=== PATIENT | female | born 1995 ===

== ENCOUNTER 2020-12-13 13:54 | Outpatient (REF) | payer OTHER, SELFPAY | END 2020-12-13 13:55 | disposition home or self-care (01) | LOC: HO.LAB 13:54 | PROVIDERS: Visit Provider Internal Medicine | DX: Z20.822 Contact with and (suspected) exposure to COVID-19 (principal) | CPT/HCPCS: 36415; C9803; U0003 ==

== ENCOUNTER 2021-07-20 12:36 | Outpatient (REF) | payer OTHER, SELFPAY | END 2021-07-20 12:37 | disposition home or self-care (01) | LOC: HO.LAB 12:36 | PROVIDERS: Visit Provider Internal Medicine | DX: Z20.822 Contact with and (suspected) exposure to COVID-19 (principal) | CPT/HCPCS: C9803; U0003; U0005 ==

== ENCOUNTER 2024-12-17 10:00 | Emergency (ER) | payer OTHER, SELFPAY ==
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
[2024-12-17 10:17] VITALS: BP 109/59; PULSE 74; RESP 16; TEMP 37; O2SAT 99; BMI 29.5
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
[2024-12-17 12:41] VITALS: BP 109/59; PULSE 74; RESP 16; TEMP 37; O2SAT 99
--- OUTSIDE RECORDS SUMMARY | 2024-12-17 14:30 | XMS_ITS | Clinical Summary ---
Author Organization [facility] ity Address [address] [place] [address] Care Team Providers Care Shot Packer Name Role Phone Zev An MD Primary Care Provider [phone] Allergies Active Allergy Reactions Criticality Noted Date Comments Amoxicillin 06/21/2015 Medications Medication Sig Dispensed Refills Start Date End Date Status fluticasone propionate (FLONASE) 50 mcg/actuation nasal spray 2 Sprays by Each Nare route daily. 07/04/2023 Active loratadine (CLARITIN) 10 mg tablet Take 1 Tablet by mouth daily. 07/10/2024 Active ibuprofen (ADVIL,MOTRIN) 600 mg tablet TAKE 1 TABLET BY MOUTH EVERY 6 HOURS NEEDED FOR PAIN (HEADACHES). 09/26/2023 Active Active Problems Problem Noted Date Diagnosed Date Acne 11/19/2024 Overview (11/19/2024): clinda and [id number]; changed to tretinoin Syncope 11/19/2024 Overview (11/19/2024): in heat while playing softball; in room and 2x in shower; seen ed and nl ekg, labs, head ct Abnormal first trimester screen 10/18/2021 Overview (11/19/2024): Referral to MFM ordered 10/24 MFM recommendations 1. Non invasive testing- Panorama- 11/01 Low risk female 2. Chorionic Villus sampling declined 3. Amniocentesis declined 4. Detalied anatomy scan level 2- scheduled for 12/07- unremarkable Rubella non-immune status, antepartum 10/02/2021 Overview (11/19/2024): Vaccinate History of marijuana use 09/15/2021 Overview (11/19/2024): Pt reports she stopped with . 10/02/2021 UDS negative Abnormal hearing screen 06/21/2015 Immunizations Name Administration Dates Next Due DTaP (Infanrix) 6wks to less than 7yo ,03/22/1999,02/24/1998,12/02,1997 [id number] (Pentacel) 2mo to less than 5yo 02/24/1998,1997,1997 HPV, Quadrivalent 12/13/2010,12/07/2009,09/27/20 Hepatitis A Pediatric (Havri x; Vaqta) 12mo to less than 19yo 11/26/2012,12/13/2010 Hepatitis B Pediatric (Enger ix B; Recombivax HB) to less than 20 yo 02/24/1998,1997,1997 IPV Inactivated polio (Ipol) 6wks and older 10/13/2001,1997,1997 Influenza Quadravalent, MDCK , 0.5ml, with preservative (Flucelvax) 6mo and older 10/08/2017 Influenza trivalent, 0.5mL, preservative free (Fluarix; FluLaval; Fluzone) ages 6mo and older (Afluria) 3 years and older 11/26/2012,12/13/2010,09/08/2009 MMR, measles mumps and rubel la Live (Priorix; M-M-R II) 12mo and older 10/13/2001,09/08/1998 Meningococcal MCV4P 06/21/2015,09/27/2009 OPV 03/22/1999 Tdap Tetanus diptheria acell ular pertussis (Boostrix; Adacel) 7yo and older 02/13/2022,09/27/2009 Varicella live (Varivax) 12m o and older 09/27/2009,09/08/1998 Surgical History Surgery Date Site/Laterality Comments OTHER SURGICAL HISTORY PROCEDURE: DENIES PREVIOUS SURGERY Medical History Medical History Date Comments Joint pain 02/2013 DX:Joint pain; C OMMENT: nl w/u Syncope 02/2013 DX:Syncope; COMM ENT: in heat while playing softball; in room and 2x in shower; seen ed and nl ekg, labs, head ct Seizures (CMS/HCC) DX:Seizures ( HCC); COMMENT: none since age of 7; not sure if d/t fevers; nl mri head 04/23/01; nl eeg Acne 11/2012 DX:Acne; COMMENT : clinda and [id number]; changed to tretinoin Dysmenorrhea DX:Dysmenorrhea Family history of breast cancer DX:Family history of breast cancer BRCA gene mutation negative 2017 DX:B RCA gene mutation negative Migraines DX:Migraines; CO MMENT: hx of migraines for several years - had taken fioricet. Family History Medical History Relation Name Comments Allergies Brother Asthma Brother Eczema Father Allergies Grandparent mgm Diabetes Grandparent mgf, mggm, pgm Hyperlipidemia Grandparent mgm Hypertension Grandparent mgm Migraines Grandparent mgm Other cancer Grandparent mgm-breast ca; mggm-bone ca Thyroid disease Grandparent mgm Diabetes Maternal Grandfather Breast cancer Maternal Grandmother Other: breast cancer Maternal Grandmother unilateral Allergies Mother Anemia Mother Asthma Mother Depression Mother anxiety, depres adriana, bipolar, panic attacks Diabetes Mother Hyperlipidemia Mother Hypertension Mother ADD / ADHD Mother's side mat cousin Allergies Mother's side mat uncle Asthma Mother's side mat uncle Depression Mother's side mat uncle-anxi ety, depression, bipolar Diabetes Mother's side Hypertension Mother's side mat uncle Other cancer Other maternal great aunt Hypertension Paternal Grandmother No Known Problems Sister paternal hlaf sister Cervical cancer Neg Hx Ovarian cancer Neg Hx Uterine cancer Neg Hx Relation Name Status Comments Brother Alive Kenyon Colon, J R 05/03/99; asthma, allergies Father Alive Kenyon Colon 03/22/74; eczema, psoriasis, sporadic contact Grandparent Maternal Grandfather Alive Maternal Grandmother Alive Mother Alive Iris Colon 07/15-dm, anxiety, depression, panic attacks, insomnia Mother's side Other Paternal Grandfather Alive Paternal Grandmother Alive Sister paternal hlaf sister Alive Social History Tobacco Use Types Packs/Day Years Used Date Smoking Tobacco: Never Smokeless Tobacco: Never Alcohol Use Standard Drinks/Week Comments Yes 0 (1 standard drink = 0.6 oz pur e alcohol) Sex and Gender Information Value Date Recorded Sex Assigned at Not on file Gender Identity Not on file Sexual Orientation Not on file Obstetrics History Last Filed Vital Signs Vital Sign Reading Time Taken Comments Blood Pressure 102/60 07/10/2024 9:00 AM EDT Pulse 80 07/10/2024 9:00 AM EDT Temperature - - Respiratory Rate - - Oxygen Saturation - - Inhaled Oxygen Concentration - - Weight 67.1 kg (148 lb) 07/10/2024 9:00 AM EDT Height 154.9 cm (5' 1 ) 07/10/2024 9:00 AM EDT Body Mass Index 27.96 07/10/2024 9:00 AM EDT Plan of Treatment Upcoming Encounters Date Type Department Care Team (Late st Contact Info) Description 07/16/2025 9:00 AM EDT Office Visit Adult Medicine [facility] [address] [place] [phone] Zev An MD [address] [place] [phone] Health Maintenance Due Date Last Done Comments Depression Screening 10/21/2022 Social Influencers of Health Screening 10/21/2022 COVID-19 Vaccine ( season) 2024 Influenza Vaccine (#1) 2024 7, 11/26/2012, 12/13/2010, Additional history exists Cervical Cancer Screening: Pap Smear 10/02/2024 10/02/2021, 10/02/2021, 10/02/2021 Cholesterol Screening (Lipid Panel) 07/10/2029 07/10/2024, 07/10/2024 DTaP,Tdap,and Td Vaccines (8 - Td or Tdap) 02/14/2032 02/13/2022, 09/27/2009, 10/13/2001, Additional history exists HIB Vaccines Aged Out 02/24/1998, 11/18, 1997 No longer eligible based on patient's age to complete this topic Hepatitis B Vaccines Completed 02/24/1998, 1997, 1997 IPV Vaccines Completed 10/13/2001, 05/0 03/1999, 02/24/1998, Additional history exists MMR Vaccines Completed 10/13/2001, 09/08/1998 Varicella Vaccines Completed 09/27/2009, 09/08/1998 HPV Vaccines Completed 12/13/2010, 11/19, 09/27/2009 Hepatitis A Vaccines Completed 11/26/2012, 12/13/19 Meningococcal ACWY Vaccine Completed 06/21/2015, HIV Screening Completed 10/02/2021 Hepatitis C Screening Completed 10/02/2021 Pneumococcal Vaccine: Pediatrics (0 to 5 Years) and At-Risk Patients (6 to 64 Years) Aged Out No longer eligible based on patient's age to complete this topic RSV Immunization Patients Under 20 months Aged Out No longer eligible based on patient's age to complete this topic Procedures Procedure Name Priority Date/Time Associated Diagnosis Comments LIPID PANEL Routine 07/10/2024 HEPATITIS C SCREENING Routine 10/02/2021 HIV SCREENING Routine 10/02/2021 PAP SMEAR Routine 10/02/2021 from Last 3 Months or Most Recently Relevant to Health Maintenance Results * Lipid panel (07/10/2024) Pathologist [facility] LDL/HDL Ratio 3 0 - 4 Triglycerides 75 0 - 150 mg/dL Cholesterol 165 0 - 200 mg/dL HDL 64 40 mg/dL LDL Cholesterol 86 0 - 100 mg/dL Blood Venous blood specimen / Unknown Historical Provider LAB BLOOD ORDERAB LES * HIV Screening (10/02/2021) Pathologist [facility] HIV Screening abstracted Historical Provider [facility] * Hepatitis C Screening (10/02/2021) Pathologist [facility] Hepatitis C Screening abstracted Historical Provider MD JONE HUGHES E * Pap smear (10/02/2021) 10/02/2021 Narrative HISTORICAL TESTING LAB RESULTING AGENCY - 10/17/2021 8:05 AM EST [id number] THINPREP PAP, IMAGED: NEGATIVE FOR SQUAMOUS INTRAEPITHELIAL LESION AND MALIGNANCY . NOTE: THE PAP TEST IS A SCREENING TEST WITH AN INHERENT FALSE NEGATIVE RATE. AUTOMATED PRESCREENING OF ALL LIQUID BASED SPECIMENS IS PERFORMED BY THE THINPREP IMAGING SYSTEM UNLESS OTHERWISE STATED BERTIN TAYLOR(ASCP) (CASE ELECTRONICALLY SIGNED 10 16 2021) ADEQUACY: SATISFACTORY ENDOCERVICAL/TRANSFORMATION ZONE COMPONENT PRESENT. SOURCE: THINPREP PAP HPV IF ASCUS, CERVICAL, IMAGED CLINICAL INFORMATION: HPV IF DIAGNOSIS OF ASCUS. , PAP HX NEG, LMP 07/08/21 [Z12.4, Z34.80] Fiorella Cardona [facility] LAB CYTOLOGY ORDERAB LES HISTORICAL TESTING LAB RESULTING AGENCY from Last 3 Months or Most Recently Relevant to Health Maintenance Care Teams Shot Packer Relationship Specialty Start Date End Date Zev An MD PCP - General Internal Medicine 12/12/21
== END 2024-12-17 12:44 | disposition home or self-care (01) ==
PROVIDERS: Emergency Provider Emergency Medicine; PCP Internal Medicine
DX: O9A.211 Injury, poisoning and certain other consequences of external causes complicating pregnancy, first trimester (principal); R10.9 Unspecified abdominal pain; Z3A.08 8 weeks gestation of pregnancy
CPT/HCPCS: 76801; 76817; 99284

== ENCOUNTER 2025-10-07 20:26 | Emergency (ER) | payer OTHER, SELFPAY ==
[2025-10-07 20:37] VITALS: BP 109/57; PULSE 84; RESP 16; TEMP 36.1; O2SAT 97; BMI 26.9
[2025-10-07 20:58] LABS: MANUAL DIFF FLAG NO
[2025-10-07 20:59] LABS: Hematocrit 38.9 % (37.0-47.0); Hemoglobin 13.2 g/dl (12.0-16.0); Imm Gran Abs Auto 0.02 X10*3/uL (0.00-0.03); Imm Gran Pct Auto 0.2 % (0.0-0.4); Lymphocytes Absolute Auto 3.2 X10*3/uL (1.2-4.9); Mean Corpuscular HGB Conc 33.9 g/dl (31.0-35.0); Mean Corpuscular Hemoglobin 31.1 pg (27.0-33.0); Mean Corpuscular Volume 91.5 fL (80.0-98.0); NRBC Abs Auto 0.000 X10*3/uL (0.0-0.012); NRBC Pct Auto 0.0 /100WBC (0.0-0.2); Platelet Count 257 X10*3/uL (160-400); Red Blood Count 4.25 X10*6/uL (4.20-5.50); White Blood Count 8.9 X10*3/uL (4.8-10.8)
--- OUTSIDE RECORDS SUMMARY | 2025-10-07 21:09 | XMS_ITS ---
Author Name [facility] Organization Unknown Care Team Organization Name Specialty Phone Email Start Date End Da te [facility] JANAE KAM Primary Care 08/21/2023 [facility] Mnady Frey Primary Care 09/25/20222023
--- OUTSIDE RECORDS SUMMARY | 2025-10-07 21:09 | XMS_ITS | Clinical Summary ---
Author Organization [facility] Address [address] [place] [phone] Phone Care Team Providers Care [employer] Systems Administrator Name Role Phone Zev An MD Primary Care Provider + Allergies Active Allergy Reactions Criticality Noted Date Comments Amoxicillin Rash Low 06/21/2015 Medications cetirizine (ZYRTEC) 10 MG tablet Take 1 tablet by mouth every morning. Active tretinoin (RETIN-A) 0.05 % cream Apply topically nightly at bedtime. Active Active Problems Problem Noted Date Diagnosed Date Supervision of normal 11/24/2024 Overview (11/26/2024): CNM Group PN care? * screening Plans cfDNA, declines carrier screen Baby ASA? NI Rh pos GC/Chlam * PAP 2023, nml Flu * COVID-19 * Hgb * GTT * Repeat RPR * Tdap * RSV * EPDS * PPBC * GBS * Infant Feeding Plan * Assessment & Plan (11/26/2024 3:29 PM EST): Pt here for dating US. Results: Gestational sac measurements: 1.69 x 1.12 x 0.92 = Gestational sac Mean: 1.24 cm Yolk Sac: 0.26 cm A 6w0d gest sac is seen with yolk sac. No embryo seen at this early time. Left ovary contains CLC. Right ovary incidental finding- well circumscribed, avascular, hyperechoic area 10 x 7 x 7 mm. We discussed that it may be too early to tell if this is a viable . Likely embryo just needs more time to grow. Advised pt to call with pain/bleeding. Follow up US in 2 wks. Encouraged and answered all questions. Family history of breast cancer 11/20/2017 Resolved Problems Problem Noted Date Diagnosed Date Resolved Date Vaginal odor 09/16/2024 11/24/2024 Assessment & Plan (09/16/2024 3:17 PM EDT): Cannot confirm BV on exam today, however this seems to be prompted by sex with her partner. I sent a prescription for MetroGel, if the odor happens again would recommend she treat empirically. Normal spontaneous vaginal delivery 04/03/2022 05/14/2022 Overview (04/03/2022): 04/02/22 baby girl anemia 04/03/2022 09/16/2024 Overview (04/03/2022): PP#1 Hb 8.5, down from 10.9 on admission Assessment & Plan (12/25/2022 12:26 PM EST): This has resolved Assessment & Plan (04/03/2022 11:46 AM EDT): Counseled on s/s anemia, iron-rich foods. Recommended iron supplementation with Floradix twice daily when she goes home. Normal intrauterine , antepartum 04/02/2022 05/14/2022 Full-term premature rupture of membranes with onset of labor within 24 hours of rupture 04/02/2022 05/14/2022 Overview (04/02/2022): SROM of clear fluid at 3am on 04/02/22- onset of strong contractions shortly after ROM. GBS negative. Confirmed by +fern and nitrazine. Vertex by bedside u/s. Assessment & Plan (04/02/2022 7:55 AM EDT): A: 26yo at 37+2, ROM since 3am with onset of painful ctx soon after. Category 1 FH. P: Will resume intermittent monitoring. Importance of staying hydrated discussed- if unable to tolerate PO intake or if vomiting continues will encourage IV placement and fluids. Labor support. Anticipate SVB. MD in house, available as needed. Syncope and collapse 02/23/2022 025 Overview (02/27/2022): Fainted 3 days in a row, February 19-, while in [place]. Referred to bull wheel worker CMP/CBC - Hb 10.5; CMP normal except for low glucose of 49 - nutritional counseling given. Assessment & Plan (12/25/2022 12:25 PM EST): She does not have any symptoms of syncope just palpitations which are PACs and PVCs as discussed above Assessment & Plan (05/28/2022 11:59 AM EDT): The patient has seen Dr. Chan a few months ago for multiple syncopal episodes. Her syncope occurred while she was in [place]. She tells me that her diet was completely different. She was trying to eat healthier but in hindsight, was probably not eating enough protein. She now feels well. She has not had any recurrence of syncopal episodes. She has not yet returned her event monitor but plans to do so. Her echocardiogram was done in our [place] office and was completely normal. Normal EF. We will have her follow-up in 6 months. Assessment & Plan (03/28/2022 10:27 AM EDT): Patient states that she had echo done. No results. Is currently wearing halter monitor. Has not had any further episodes of syncope. Assessment & Plan (02/27/2022 9:38 AM EDT): At this time I have ordered her an echo and a loop monitor we will see her thereafter in follow-up I did encourage her to drink as much water as possible Assessment & Plan (02/23/2022 1:55 PM EDT): Rehan is a 26 y.o. at 31w6d, here for problem OB visit. Reports having passed out 3 days in a row earlier this week, occurred February 19-, was in [place] at the time. The first time, she had just gotten out of the shower, didn't feel well, sat down. Her reports she was shaking, then she lost consciousness. The second time it happened, she had just had a full meal at a restaurant and maybe 10-15 minutes later, she had the same symptoms, was sitting at the time, lost consciouness for 1-2 minutes. The third day, it happened at [facility] in the morning, had just eaten, was drinking lots of fluid, got very tired, sat down, lost consciousness again. Because she was at [facility], they called paramedics, reports her BP was 90/60. Didn't go to hospital because she felt fine when she regained consciousness and felt FM. Reports she called our office and was advised to eat more food with sodium, which she has done. Also reports her heart has been feeling funny, even before , feels like her heart skips a beat, sometimes accelates out of nowhere. States it feels off and has worsened during . BP 122/60 today Active baby. Discussed could be related to low BP, cardiac origin, low blood sugar, electrolyte imbalance. Will go to lab today for CMP and CBC Referred to bull wheel worker Fibroid uterus 02/06/2022 09/16/2024 Overview (02/28/2022): Seen on First trimester dating US 1.4 x 1.2 x 1.5 cm left submucosal fibroid Requesting records from 20 week US done at [facility] Consider US in third trimester to reassess - scheduled 02/28/22: Growth at the 35%, Fibroid measuring 2.75cmX1.29cmX2.39cm, HU 9.29, MVP 2.89, practice breathing observed Assessment & Plan (12/25/2022 12:26 PM EST): Asymptomatic at this time she is going to try for 1 more child Assessment & Plan (04/02/2022 7:49 AM EDT): IV access recommended - Rehan declines at this time. Assessment & Plan (02/28/2022 10:34 AM EDT): Repeat US done 02/28/22: Growth at the 35%, Fibroid measuring 2.75cmX1.29cmX2.39cm, HU 9.29, MVP 2.89, practice breathing observed Assessment & Plan (02/27/2022 9:39 AM EDT): Stable at this time but present Assessment & Plan (02/23/2022 1:50 PM EDT): Has f/u US scheduled 02/28 Assessment & Plan (02/14/2022 8:21 PM EDT): Discussed with patient and partner that U/S records are still not her chart (other records are in Care Everywhere). Reviewed that fibroid seen in first trimester was small but that these can enlarge in . Discussed trying to obtain records again vs checking growth at n.v.; she would prefer to repeat U/S, so this was ordered. Assessment & Plan (02/06/2022 11:45 AM EDT): Seen on First trimester dating US 1.4 x 1.2 x 1.5 cm left submucosal fibroid Requesting records from 20 week US done at [facility] Consider US in third trimester to reassess Abnormal first trimester screen 02/06/2022 05/14/2022 Overview (02/06/2022): Positive FTS for Down's Negative CFDNA Normal Level II Assessment & Plan (02/06/2022 12:00 PM EDT): Positive FTS for Down's Negative CFDNA Normal Level II Rubella non-immune status, antepartum 02/06/2022 05/14/2022 Overview (02/06/2022): Offer MMR PP Assessment & Plan (02/06/2022 12:03 PM EDT): Offer MMR PP Decreased movements in third trimester 02/23/2022 Assessment & Plan (02/02/2022 10:36 AM EDT): NST done today, RNST. Rehan started to feel movement while on monitor. She has an anterior placenta so has not felt as much movement as she expected. We discussed doing a kick count once a day after eating. Reviewed when to call. Encounter for supervision of normal first in third trimester 01/01/2022 05/14/2022 Overview (03/28/2022): CNM OB-CMI = 0. Late transfer at 24w2d, Records are in Care Everywhere, entered in External Results Its a Girl! O pos GC/Chlam neg PAP NIL 10/08 Tdap 02/13/22 Flu * COVID-19 Vaccinated x 2 - check about Booster Hgb 10.7 GTT 116 28 wk Repeat RPR neg GBS Neg PPBC IUD screening First Trimester screen positive, per pt CFDNA and follow up were negative (awaiting records) Assessment & Plan (03/29/2022 1:04 PM EDT): Rehan is a 26 y.o. at 35w5d states she feels well today. Denies any concerns at this time. Denies any LOF/Vaginal bleeding/Ucs. -Discussed FM at this [place] and [facility] -Review signs and symptoms of Labor and when/how to contact midwives -GBS collected today -Advised on weekly visits from now on. -Reviewed end of discomforts and comfort measures. -Advised on natural ways of promoting labor. -Julita boyfriend starts the [employer] the week of her due date. She is hoping to go into labor before he starts the [employer]. -Advised that after 37wks the baby is considered Full term. Advised on VE and membrane sweeping Assessment & Plan (03/28/2022 10:30 AM EDT): Rehan is here with her partner. She has been feeling some light cramping. Otherwise well. Baby is moving well. Reviewed GBS negative. Thinks she would like IUD for control. They are having some stress because her partner is starting [employer] 2 days after her due date. She would like membrane sweep today. We reviewed that this could result in a delivery which would have negative implications for her baby and future pregnancies. Could consider next week if she is still interested. Would like cervical exam. /-2, vertex. Discussed possibility of elective induction at 39 weeks. She does not think she wants to do that. She feels comfortable with labor warnings and when to call. Assessment & Plan (03/29/2022 12:44 PM EDT): Rehan is a 26 y.o. at 34w6d states she feels well today. Denies any concerns at this time. Denies any LOF/Vaginal bleeding/Ucs. -Discussed FM at this [place] and [place] -Review signs and symptoms of Labor and when/how to contact midwives -GBS NV -Advised on weekly visits starting NV -Reviewed end of discomforts and comfort measures. -We discussed PP BC.She will like to think about her options Assessment & Plan (02/28/2022 10:19 AM EDT): Rehan is a 26 y.o. at 32w4d states she feels well today. Denies any concerns at this time. Denies any LOF/Vaginal bleeding/Ucs. Reports +FM -Discussed FM at this [place] and [facility] -Review signs and symptoms of Pre-term Labor and when/how to contact midwives -Received Tdap -NV in 2 weeks Assessment & Plan (02/27/2022 9:39 AM EDT): Hopefully the echo will be normal and the loop monitor will also be normal and will not affect the rest of her gestational period Assessment & Plan (02/14/2022 8:26 PM EDT): Here with Nathaniel. Feeling OK, has been staying active with exercise. EPDS 11, reports feeling more anxious than usual during due to life stressors and unknowns of becoming a parent. No SI/HI. Discussed expectations and resources, discussed planning for period, meal train. She states that exercise and support from partner keep her grounded. She feels she is managing well at this time and doesn't need any additional support. Discussed TDAP, given today. Pt reports some stronger smell to her urine recently along with frequency. Clean catch collected per her request, and POC urinalysis was within normal limits. Advised pt that change in smell of urine is not a sign of UTI; encouraged to hydrate well throughout the day. Assessment & Plan (02/06/2022 11:47 AM EDT): Lincoln is a 26 y.o. at 28w5d doing well. Here with Nathaniel. Denies VB/LOF/Ctxs. Does not feel much FM - see other Problem on list. Labs today. Discussed birthday wishes packet and answered questions about positions for pushing in labor and CBE. Partner, Nathaniel is starting [employer] the week she is due and he won't be able to take any time off other than the day of . She is asking about natural ways to stimulate labor at term. We discussed that at 36 weeks she can start [employer] [place] [employer] and also Red Raspberry [place] Tea and we could consider Membrane sweep at 39 weeks. We reviewed it would be best to talk more about details as we are closer, but also discussed that we could talk further about elective IOL vs expectant management if she does not go into spontaneous labor close to due date. Refill on Unisom sent Records reviewed and results entered. Just missing Anatomy US and follow up done at [facility] for Positive FTS - records requested from [facility] Assessment & Plan (01/01/2022 12:08 PM EST): Rehan is a 26 y.o. at 24w2d states she feels well today. Denies any concerns at this time. Denies any LOF/Vaginal bleeding/Ucs. Reports +FM. States she had an elevated NT. Went to [facility] and had a cfDNA which was negative and a level 2 anatomy scan which was negative as well. -Late transfer from [place] no records in media yet. -Discussed FM at this [place] -Review signs and symptoms of Pre-term Labor and when/how to contact midwives -Advised that our OBs review all US and might make further recommendations -2nd trimester labs discussed for 28 wks. -Pt advised to come in earlier NV and stop at the lab first to drink glucose drink prior to coming up for her MIC visit. -Advised on Tdap administration in and implications. Administered between 28-36wk. -Oriented to the practice and CBC. Will sign release forms today for [facility] and [facility]. -Lives in [facility] in 4 weeks Encounters Date Type Department Care Team Description 07/14/2025 3:30 PM EDT Office Visit [facility] [address] [place] [address] Sondra Kowalski MD Vaginal odor (Primary Dx); Amenorrhea from Last 3 Months Immunizations Immunization Administration Dates Next Due DTaP 10/13/2001, 9,02/24/1998,12/02,1997 [id number] 02/24/1998,1997,1997 HPV,quadrivalent 12/13/2010,12/07/2009, 9 Hepatitis A, ped/adol, 2 dose 11/26/2012, 011 Hepatitis B 02/24/1998,1997,1997 INFLUENZA, SPLIT VIRUS, TRIV ALENT W/ PRESERVATIVE IM 11/26/2012,12/13/2010,09/08/2009 IPV 10/13/2001,1997,1997 Influenza Quadrivalent MDCK w/Preservative IM 10/08/2017 MMR 10/13/2001,09/08/1998 Meningococcal MCV4P 06/21/2015,09/27/2009 Polio - OPV 03/22/1999 Tdap 02/13/2022,09/27/2009 Varicella 09/27/2009,09/08/1998 Family History Medical History Relation Comments Eczema Father Diabetes Maternal Grandfather Anemia Maternal Grandmother Breast cancer Maternal Grandmother Diabetes Maternal Grandmother Diabetes type II Maternal Grandmother Hyperlipidemia Maternal Grandmother Anemia Mother Diabetes type II Mother Hyperlipidemia Mother Hypertension Mother No Known Problems Paternal Grandfather No Known Problems Paternal Grandmother Relation Status Comments Father Maternal Grandfather Maternal Grandmother Mother Paternal Grandfather Paternal Grandmother Social History Tobacco Use Types Packs/Day Years Used Date Smoking Tobacco: Never Smokeless Tobacco: Never Tobacco Cessation:Counseling Given: Not Answered Education Answer Date Recorded Are you interested in more education? Not on ignacia e 03/16/2023 Are you concerned about learning? Not on file 03/16/2023 No 03/16/2023 No 03/16/2023 Digital Access Answer Date Recorded No 04/14/2023 No 04/14/2023 Reliable internet access at home? Not on file 04/14/2023 Device with a working camera? Not on file Comments No Sex and Gender Information Value Date Recorded Sex Assigned at Not on file Legal Sex Female 1:35 PM EST Gender Identity Not on file Sexual Orientation Not on file Last Filed Vital Signs Vital Sign Reading Time Taken Comments Blood Pressure 118/74 07/14/2025 3:19 PM EDT Pulse 78 12/25/2022 12:16 PM EST Temperature 36.6 C (97.9 F) 04/04/2022 1:00 PM EDT Respiratory Rate 18 04/04/2022 1:00 PM EDT Oxygen Saturation 98% 12/25/2022 12:16 PM EST Inhaled Oxygen Concentration - - Weight 67.1 kg (148 lb) 07/14/2025 3:19 PM EDT Height 154.9 cm (5' 1 ) 07/14/2025 3:19 PM EDT Body Mass Index 27.96 07/14/2025 3:19 PM EDT Plan of Treatment Health Maintenance Due Date Last Done Comments DEPRESSION SCREENING 2009 INFLUENZA VACCINE (#1) 2025 7, 11/26/2012, 12/13/2010, Additional history exists COVID-19 VACCINE ( season) 2025 07/18/2021, 05/18/2021 PAP SMEAR 10/02/2027 10/02/2024, 09/18, 10/02/2021 Adult Td,Tdap Booster 02/14/2032 02/13/2022, 009 HIB VACCINES Aged Out 02/24/1998, 11/18, 1997 No longer eligible based on patient's age to complete this topic HEPATITIS A VACCINES Completed 11/26/2012, 01/26/20 11 MENINGOCOCCAL VACCINES (ACWY) Completed 06/21/2015, 09/27/2009 HEPATITIS C SCREENING Completed 10/02/2021 HIV ONE-TIME SCREENING (18-65 YEARS) Completed 10/02/2021 SMOKING STATUS SCREENING (Once After 26 Yrs) Completed 10/02/2024 MENINGOCOCCAL VACCINES (B) Aged Out N o longer eligible based on patient's age to complete this topic PNEUMOCOCCAL VACCINES (0-49 years) Aged Out No longer eligible based on patient's age to complete this topic Medical Devices Implanted Type Area Cuff Matcher Device Identifier Shelf Expiration Date Model / Serial / Lot Iud Implanted: (Quantity not on file) Intrauterine Device Procedures Procedure Name Priority Date/Time Associated Diagnosis Comments HC NFCT DS BCT VAGINOSIS&VAGINITIS MULT AMP PROBE Routine 07/14/2025 3:46 PM EDT Vaginal odor POCT URINE HCG Routine 07/14/2025 3:45 PM EDT Amenorrhea PAP TEST Routine 10/02/2024 12:00 AM EST HEPATITIS B SURFACE ANTIGEN Routine 10/02/2021 from Last 3 Months or Most Recently Relevant to Health Maintenance Results * Vaginitis Panel (07/14/2025 3:46 PM EDT) Bacterial Vaginosis Negative Negative [facility] Marilu Species Not Detected Not Detected [facility] Marilu glabrata Not Detected Not Detected [facility] Trichomonas Vaginalis Not Detected Not Detected [facility] Other (Vaginal) 07/14/2025 3 :46 PM EDT 07/14/2025 7:07 PM EDT us Sondra Kowalski MD LAB GENERAL ORDERABLES Final R esult [facility] [address] [place] [address] * Poct Urine HCG (07/14/2025 3:45 PM EDT) HCG, urine Negative, Internal QCs acceptable Negative [facility] Other 07/14/2025 3:45 PM EDT Sondra Kowalski MD LAB POCT ENTER/EDIT ORDERABLES Final Result [address] [address], [facility] * Pap Test (10/02/2024 12:00 AM EST) Report [address] [address] Gun Repair Clerk: Pan Burkett MD SENIOR J2EE DEVELOPER Cytology Report FINAL DIAGNOSIS A. PAP SMEAR (THIN PREP) CE: SPECIMEN ADEQUACY: Satisfactory for evaluation; transformation zone present. INTERPRETATION: NEGATIVE FOR INTRAEPITHELIAL LESION OR MALIGNANCY. This specimen was analyzed by the automated ThinPrep Imaging System ([employer].) and the selected boothe were reviewed by a pump room operator. Electronically Signed Out By: BERTIN Barragan(ASCP) The Pap test is a screening test primarily for squamous cancers and precursors and has associated false-negative and false-positive results. New technologies such as liquid-based preparations may decrease but will not eliminate all false-negative results. Regular sampling and follow-up of unexplained clinical signs and symptoms are recommended to minimize false negative results. PROCEDURES/ADDENDA HPV Testing (Requested) Ordered Date: 10/05/2024 A. PAP SMEAR (THIN PREP) CE: High-risk HPV Panel w/ extended genotyping NEG HPV 16-NEG HPV 18-NEG HPV 45-NEG HPV 33/58-NEG HPV 31-NEG HPV 56/59/66-NEG HPV 51-NEG HPV 52-NEG HPV 35/39/68-NEG Performed by real-time polymerase chain reaction (PCR) at [facility], [address] [place] [address] using the FDA-approved BD Onclarity9 HPV Assay with extended genotyping. Uses of the assay in scenarios other than those approved by the FDA should be considered off-label use. The accuracy and precision of this test for all other off-label specimen sources has been verified in the Cytopathology Laboratory of the [facility] and has not been cleared or approved by the U.S. Food and Drug Administration. Clinical correlation is advised. The assay assesses the E6/E7 DNA target and utilizes human beta globin as an internal control. Cytology and HPV testing are screening assays and should not be used as the sole means of detecting cancer. False-positives and false-negatives can occur. CLINICAL HISTORY Date of Last Menstrual Period: Not Provided Menstrual History: Unknown Other Clinical Conditions: Screening Pap SPECIMEN SOURCE A: PAP SMEAR (THIN PREP) CE Patient Name: REHAN VELIZ : 1995 (Age: 29) Sex: F Institution: [facility] Location: [facility] Date of Collection: 10/02/2024 Date of Reported: 10/09/2024 11:24 Results to: Kia Mares [facility] Final Diagnosis A. PAP SMEAR (THIN PREP) CE: SPECIMEN ADEQUACY: Satisfactory for evaluation; transformation zone present. INTERPRETATION: NEGATIVE FOR INTRAEPITHELIAL LESION OR MALIGNANCY. This specimen was analyzed by the automated ThinPrep Imaging System ([employer].) and the selected boothe were reviewed by a pump room operator. [facility] Results\Inter pretation A. PAP SMEAR (THIN PREP) CE: High-risk HPV Panel w/ extended genotyping NEG HPV 16-NEG HPV 18-NEG HPV 45-NEG HPV 33/58-NEG HPV 31-NEG HPV 56/59/66-NEG HPV 51-NEG HPV 52-NEG HPV 35/39/68-NEG Performed by real-time polymerase chain reaction (PCR) at [facility], [address] [place] [address] using the FDA-approved BD Onclarity HPV Assay with extended genotyping. Uses of the assay in scenarios other than those approved by the FDA should be considered off-label use. The accuracy and precision of this test for all other off-label specimen sources has been verified in the Cytopathology Laboratory of the [facility] and has not been cleared or approved by the U.S. Food and Drug Administration. Clinical correlation is advised. The assay assesses the E6/E7 DNA target and utilizes human beta globin as an internal control. Cytology and HPV testing are screening assays and should not be used as the sole means of detecting cancer. False-positives and false-negatives can occur. [facility] Conversion Type (Conversion Source) 10/02/2024 10/05/2024 9:48 AM EST Kia Camilo MD CYTOLOGY ORDER JORDI Edited Result - Final [facility] [address] [place] [address] * Hepatitis B surface antigen (10/02/2021) HBSAG - EXTERNAL Neg us Historical Provider LAB BLOOD BKR ORDERABLES Final Result from Last 3 Months or Most Recently Relevant to Health Maintenance Insurance [employer] [place] [address] [place] [address] [facility] [place] [address] [place] [address] [facility] [place] [address] [place] [address] [place] [address] [place] [address] [place] [address] [place] [address] [facility] [address] [place], [place] [address] [employer] Care Teams [employer] Systems Administrator Relationship Specialty Start Date End Date Zev An MD [address] [place] [id number] PCP - General 10/02/24 Additional Source Comments The information contained in this document represents components of the legal health record. It is not the complete legal health record.[facility]
--- OUTSIDE RECORDS SUMMARY | 2025-10-07 21:09 | XMS_ITS | Clinical Summary ---
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 09/26/2023 Active cetirizine (ZyrTEC) 10 mg tablet TAKE 1 TABLET BY MOUTH EVERY DAY 90 tablet 1 02/23/2025 Active Bacillus coagulans-inuli n 1 billion-250 cell-mg capsule Take by mouth. Pre,pro,post biotic Active fluticasone propionate (FLONASE) 50 mcg/actuation nasal spray SPRAY 2 SPRAYS INTO EACH NOSTRIL EVERY DAY 48 mL 1 07/29/2025 Active Active Problems Problem Noted Date Diagnosed Date Acne 11/19/2024 Overview (11/19/2024): clinda and clxvn-o-dfqeds; changed to tretinoin Syncope 11/19/2024 Overview (11/19/2024): in heat while playing softball; in room and 2x in shower; seen ed and nl ekg, labs, head ct Abnormal first trimester screen 10/18/2021 Overview (11/19/2024): Referral to M ordered 10/24 [facility] recommendations 1. Non invasive testing- Panorama- 11/01 Low risk female 2. Chorionic Villus sampling declined 3. Amniocentesis declined 4. Detalied anatomy scan level 2- scheduled for 12/07- unremarkable Rubella non-immune status, antepartum 10/02/2021 Overview (11/19/2024): Vaccinate History of marijuana use 09/15/2021 Overview (11/19/2024): Pt reports she stopped with . 10/02/2021 UDS negative Abnormal hearing screen 06/21/2015 Encounters Date Type Department Care Team Description 08/10/2025 7:30 AM EDT Ancillary Procedure [facility] [address] [place] [address] Chest pain, unspecified type 07/16/2025 9:55 AM EDT - 07/16/2025 11:59 PM EDT Hospital Encounter [address] [phone] Paresthesia of arm Discharge Disposition: Home or Self Care 07/16/2025 9:00 AM EDT Office Visit Adult Medicine [address] [phone] Zev An MD Routine physical examination (Primary Dx); Screening for diabetes mellitus; Screening, lipid; BRCA gene mutation positive in female; FHx: breast cancer; Paresthesia of arm; Chest pain, unspecified type; Constipation, unspecified constipation type; Palpitations from Last 3 Months Immunizations Immunization Administration Dates Next Due DTaP (Infanrix) 6wks to less than 7yo ,03/22/1999,02/24/1998,12/02,1997 [id number] (Pentacel) 2mo to less than 5yo 02/24/1998,1997,1997 HPV, Quadrivalent 12/13/2010,12/07/2009,09/27/20 09 Hepatitis A Pediatric (Havri x; Vaqta) 12mo [...] and nl ekg, labs, head ct Seizures (CMS/HCC V24, CMS/HCC V28) DX:Seizures (HCC); COMMENT: none since age of 7; not sure if d/t fevers; nl mri head 04/23/01; nl eeg Acne 11/2012 DX:Acne; COMMENT : clinda and vhulw-n-hvfwny; changed to tretinoin Dysmenorrhea DX:Dysmenorrhea Family history [...] drink = 0.6 oz pur e alcohol) occ Housing Instability Answer Date Recorde d Are you worried that in the next 2 months you may not have stable housing? No 07/16/2025 Food Access & Nutrition Answer Date Rec orded Do you have access to a vari ety of food including fruits and vegetables? Yes 07/16/2025 Access to Healthcare Answer Date Record ed Within the last 3 months, shalonda lowe many times did you visit the emergency department for your medical care? 0 07/16/2025 Health Literacy Answer Date Recorded How often do you need to hav e someone help you when you read instructions, pamphlets, or other written material from your doctor or pharmacy? Never 07/16/2025 Caregiver: How often do you need to have someone help you when you read instructions, pamphlets, or other written material from your doctor or pharmacy? Not on file 07/16/2025 Financial Risk Answer Date Recorded How hard is it for you to pa y for the very basics like food, housing, medical care, and air conditioning / heating? Somewhat hard 07/16/2025 Transportation Answer Date Recorded Has the lack of transportati on kept you from meetings, work, or from getting things needed for daily living? No Has the lack of transportati on kept you from medical appointments or from getting medications? No 07/16/2025 Social Isolation Answer Date Recorded How often do you feel lonely or isolated from th ose around you? Never 07/16/2025 Food Risk Answer Date Recorded Within the past 12 months we worried whether our food would run out before we got money to buy more. Never true 025 Within the past 12 months th e food we bought just didn't last and we didn't have money to get more. Sometimes true 07/16/2025 Dependent Care Answer Date Recorded Do you need help finding or paying for care for your loved ones. For example, childcare center director or elderly care for an older adult? No 07/16/2025 Education Answer Date Recorded Do you think completing more education or training, like finishing a GED, going to college, or learning a trade, would be helpful for you? No 07/16/2025 Employment and Income Answer Date Recor ded During the last four weeks, have you been actively looking for work? No 07/16/2025 Living Situation Answer Date Recorded What is your living situation? Unrecognized valu e 07/16/2025 Comments No Sex and Gender Information Value Date Recorded Sex Assigned at Not on file Legal Sex Female 4:41 AM EST Gender Identity Not on file Sexual Orientation Not on file Obstetrics History Last Filed Vital Signs Vital Sign Reading Time Taken Comments Blood Pressure 126/59 08/10/2025 7:33 AM EDT Pulse 74 07/16/2025 8:51 AM EDT Temperature 36.4 C (97.6 F) 07/16/2025 8:51 AM EDT Respiratory Rate 14 07/16/2025 8:51 AM EDT Oxygen Saturation 100% 07/16/2025 8:51 AM EDT Inhaled Oxygen Concentration - - Weight 66.2 kg (146 lb) 08/10/2025 7:33 AM EDT Height 154.9 cm (5' 1 ) 07/16/2025 8:51 AM EDT Body Mass Index 27.59 07/16/2025 8:51 AM EDT Plan of Treatment Upcoming Encounters Date Type Department Care Team (Late st Contact Info) Description 07/26/2026 9:00 AM EDT Office Visit Adult Medicine [facility] [address] [place] [address] Zev An MD [address] [place], [place] Health Maintenance Due Date Last Done Comments Cervical Cancer Screening: Pap Smear 10/02/2024 10/02/2021, 10/02/2021, 10/02/2021 COVID-19 Vaccine ( season) 2025 07/18/2021, 05/18/2021 Influenza Vaccine (#1) 2025 7, 11/26/2012, 12/13/2010, Additional history exists Social Influencers of Health Screening 07/16/2026 07/16/2025 Cholesterol Screening (Lipid Panel) 07/16/2030 07/16/2025, 07/10/2024, 07/10/2024 DTaP,Tdap,and Td Vaccines (8 - Td or Tdap) 02/14/2032 02/13/2022, 09/27/2009, 10/13/2001, Additional history exists RSV Immunization Adult Patients (1 - 1-dose 75+ series) 2072 Hepatitis B Vaccines Completed 02/24/1998, 1997, 1997 HIB Vaccines Completed 10/25/2000, 07/1998, 02/24/1998, Additional history exists IPV Vaccines Completed 10/13/2001, 03/1999, 02/24/1998, Additional history exists MMR Vaccines Completed 10/13/2001, 09/08/1998 Varicella Vaccines Completed 09/27/2009, 09/08/1998 HPV Vaccines Completed 12/13/2010, 11/19, 09/27/2009 Hepatitis A Vaccines Completed 11/26/2012, 12/13/19 11 Meningococcal ACWY Vaccine Completed 06/21/2015, HIV Screening Completed 10/02/2021 Hepatitis C Screening Completed 10/02/2021 Depression Screening Completed 07/16/2025 Meningococcal B Vaccine Aged Out No l onger eligible based on patient's age to complete this topic Pneumococcal Vaccine: Pediatrics (0 to 5 Years) and At-Risk Patients (6 to 49 Years) Aged Out No longer eligible based on patient's age to complete this topic RSV Immunization Patients Under 20 months Aged Out No longer eligible based on patient's age to complete this topic Procedures Procedure Name Priority Date/Time Associated Diagnosis Comments STRESS TEST ONLY EXERCISE Routine 08/10/2025 8:07 AM EDT Chest pain, unspecified type ECG Routine 07/16/2025 2:07 PM EDT CBC WITH AUTO DIFFERENTIAL Routine 07/16/2025 10:26 AM EDT Routine physical examination CBC AND DIFFERENTIAL Routine 07/16/2025 10:26 AM EDT Routine physical examination COMPREHENSIVE METABOLIC PANEL Routine 07/16/2025 10:26 AM EDT Routine physical examination Screening for diabetes mellitus LIPID PANEL WITH REFLEX TO DIRECT LDL Routine 07/16/2025 10:26 AM EDT Routine physical examination Screening, lipid THYROID STIMULATING HORMONE WITH REFLEX TO FREE T4 AND FREE T3 Routine 07/16/2025 10:26 AM EDT Constipation, unspecified constipation type Palpitations XR CERVICAL SPINE 4-5 VIEWS Routine 07/16/2025 10:04 AM EDT Paresthesia of arm HEPATITIS C SCREENING Routine 10/02/2021 HIV SCREENING Routine 10/02/2021 PAP SMEAR Routine 10/02/2021 from Last 3 Months or Most Recently Relevant to Health Maintenance Results * Exercise stress test (08/10/2025 8:07 AM EDT) Target HR 164 bpm CV STRESS ONLY Baseline HR 86 bpm CV STRES S ONLY Baseline SBP 126 mmHg CV STRE SS ONLY Baseline DBP 89 mmHg CV STRE SS ONLY O2 sat rest 99 % CV STRES S ONLY Peak HR 166 bpm CV STRESS ONLY Peak SBP 160 mmHg CV STRESS ONLY Peak DBP 80 mmHg CV STRESS ONLY Estimated workload 13.4 METS CV STRESS ONLY Rate Pressure Product 26,560.0 mmHg*bpm CV STRESS ONLY Percent HR 86 % CV STRESS ONLY Exercise/injec tion duration (min) 10 min CV STRESS ONLY Exercise/injec tion duration (sec) 45 sec CV STRESS ONLY Max HR Percent 86 % CV ST RESS ONLY Anatomical Region Laterality Modality Cardiac Diagnost ic Narrative 2025 4:30 PM EDT Stress ECG was normal. No ischemia by ECG at this adequate level of stress. Exercise stress test was performed. Patient reported no symptoms during the stress test. Exercise capacity was above average. Normal blood pressure response. Stress Findings A Gerard protocol stress test was performed. Overall, the patient's exercise capacity was above average. The patient reached stage 4. Total stress time was 10 min and 45 sec. The patient achieved the target heart rate. The patient's hemodynamic response was adequate for diagnosis. Blood pressure demonstrated a normal response. Heart rate demonstrated a normal response. The patient reported no symptoms during the stress test. ECG 29-year-old female with no past cardiac medical history who presents today for exercise stress test to rule out ischemia in the setting of atypical left-sided chest discomfort. She is not on any beta-blockers or calcium channel blockers. The ECG shows normal sinus rhythm. There were no arrhythmias during stress. There is no significant ST abnormalities during stress. There were no arrhythmias during recovery. The result of the stress ECG was negative for ischemia. us Zev An MD CV STRESS PROCEDURES Final Resu lt * ECG (07/16/2025 2:07 PM EDT) us Zev An MD ECG ORDERABLES Final Result * Thyroid stimulating hormone with reflex to free t4 and free t3 (07/16/2025 10:26 AM EDT) TSH 1.10 0.40 - 4.00 mcIU/mL LAB CHEMISTRY METHOD 07/16/2025 4:24 PM [facility] Blood Venous blood specimen / Unknown Venipuncture / Unknown 07/16/2025 10:26 AM EDT 07/16/2025 10:26 AM EDT us Zev An MD LAB BLOOD ORDERABLES Final Resu lt [facility] [address] [place] [address], * (ABNORMAL) Lipid panel with reflex to direct LDL (07/16/2025 10:26 AM EDT) Cholesterol 185 0 - 200 mg/dL LAB CHEMISTRY METHOD 07/16/2025 3:23 PM [facility] Triglycerides 57 0 - 150 mg/dL LAB CHEMISTRY METHOD 07/16/2025 3:23 PM [facility] HDL 61 >=40 mg/dL LAB CHEMISTRY METHOD 07/16/2025 3:23 PM [facility] LDL Calculated 113(H) 0 - 100 mg/dL LAB CHEMISTRY METHOD 07/16/2025 3:23 PM [facility] Comment:Estimated LDL Calcul ated using equation: Total cholesterol - HDL cholesterol - (Triglycerides/5) VLDL Cholesterol Hakeem 11.4 mg/dL LAB CHEMISTRY METHOD 07/16/2025 3:23 PM [facility] Non HDL Chol. (LDL+VLDL) 124 <145 mg/dL LAB CHEMISTRY METHOD 07/16/2025 3:23 PM [facility] Chol/HDL Ratio 3.0 0.0 - 4.4 LAB CHEMISTRY METHOD 07/16/2025 3:23 PM [facility] Blood Venous blood specimen / Unknown Venipuncture / Unknown 07/16/2025 10:26 AM EDT 07/16/2025 10:26 AM EDT us Zev An MD LAB BLOOD ORDERABLES Final Resu lt [facility] [address] [place] [address], * (ABNORMAL) CBC auto differential (07/16/2025 10:26 AM EDT) WBC 6.0 4.8 - 10.8 K/mcL LAB HEMETOLOGY METHOD 07/16/2025 12:37 PM EDT [facility] RBC 4.30 3.80 - 4.80 M/mcL LAB HEMETOLOGY METHOD 07/16/2025 12:37 PM EDT [facility] Hemoglobin 13.2 11.5 - 16.0 g/dL LAB HEMETOLOGY METHOD 07/16/2025 12:37 PM EDT [facility] Hematocrit 40.6 35.0 - 47.0 % LAB HEMETOLOGY METHOD 07/16/2025 12:37 PM EDT [facility] MCV 95.1 79.0 - 98.0 FL LAB HEMETOLOGY METHOD 07/16/2025 12:37 PM EDT [facility] MCH 30.9 27.0 - 32.0 pcg LAB HEMETOLOGY METHOD 07/16/2025 12:37 PM EDT [facility] MCHC 32.5 32.0 - 37.0 g/dL LAB HEMETOLOGY METHOD 07/16/2025 12:37 PM EDT [facility] RDW 13.4 11.0 - 15.0 % LAB HEMETOLOGY METHOD 07/16/2025 12:37 PM EDT [facility] Platelets 269 130 - 400 K/mcL LAB HEMETOLOGY METHOD 07/16[facility]25 12[facility] MPV 12.4(H) 7.0 - 11.0 FL LAB HEMETOLOGY METHOD 07/16/2025 12:37 [facility] NRBC 0.0 <1.0 % LAB HEMETOLOGY METHOD 07/16/2025 12:37 PM [facility] NRBC Absolute 0.00 <0.10 K/mcL LAB HEMETOLOGY METHOD 07/16/2025 12:37 PM [facility] Neutrophils Relative 48.0 % LAB HEMETOLOGY METHOD 07/16/2025 12:37 PM [facility] Lymphocytes Relative 35.7 % LAB HEMETOLOGY METHOD 07/16/2025 12:37 PM [facility] Monocytes Relative 9.0 % LAB HEMETOLOGY METHOD 07/16/2025 12:37 PM [facility] Eosinophils Relative 6.3 % LAB HEMETOLOGY METHOD 07/16/2025 12:37 PM [facility] Basophils Relative 0.7 % LAB HEMETOLOGY METHOD 07/16/2025 12:37 PM [facility] Immature Granulocytes Relative 0.3 % LAB HEMETOLOGY METHOD 07/16/2025 12:37 PM [facility] Neutrophils Absolute 2.90 1.50 - 7.00 K/mcL LAB HEMETOLOGY METHOD 07/16/2025 12:37 PM [facility] Lymphocytes Absolute 2.15 1.00 - 5.00 K/mcL LAB HEMETOLOGY METHOD 07/16/2025 12:37 PM [facility] Monocytes Absolute 0.54 0.20 - 1.00 K/mcL LAB HEMETOLOGY METHOD 07/16/2025 12:37 PM [facility] Eosinophils Absolute 0.38 0.00 - 0.50 K/mcL LAB HEMETOLOGY METHOD 07/16/2025 12:37 PM EDT [facility] Basophils Absolute 0.04 0.00 - 0.20 K/[facility] HEMETOLOGY METHOD 07/16/2025 12:37 PM EDT [facility] Immature Granulocytes Absolute 0.02 0.00 - 0.03 K/[facility] LAB HEMETOLOGY METHOD 07/16/2025 12:37 PM EDT [facility] Blood Venous blood specimen / Unknown Venipuncture / Unknown 07/16/2025 10:26 AM EDT 07/16/2025 10:26 AM EDT us Zev An MD LAB BLOOD ORDERABLES Final Resu lt [facility] [address] [place] [address], * (ABNORMAL) Comprehensive metabolic panel (07/16/2025 10:26 AM EDT) Sodium 137 133 - 145 mmol/L LAB CHEMISTRY METHOD 07/16/2025 4:42 PM [facility] Potassium 4.3 3.5 - 5.5 mmol/L LAB CHEMISTRY METHOD 07/16/2025 4:42 PM [facility] Chloride 105 96 - 110 mmol/L LAB CHEMISTRY METHOD 07/16/2025 4:42 PM [facility] CO2 27 21 - 32 mmol/L LAB CHEMISTRY METHOD 07/16/2025 4:42 PM [facility] Anion Gap 5 3 - 11 LAB CHEMISTRY METHOD 07/16/2025 4:42 PM [facility] Glucose 85 70 - 100 mg/dL LAB CHEMISTRY METHOD 07/16/2025 4:42 PM [facility] BUN 14 5 - 25 mg/dL LAB CHEMISTRY METHOD 07/16/2025 4:42 PM [facility] Creatinine 0.91 0.50 - 1.10 mg/dL LAB CHEMISTRY METHOD 07/16/2025 4:42 PM [facility] eGFR 89 >=60 mL/min/1. 73m2 LAB CHEMISTRY METHOD 07/16/2025 4:42 PM [facility] Comment:Calculation based on the Chronic Kidney Disease Epidemiology Collaboration (CKD-EPI) equation refit without adjustment for race. BUN/Creatinine Ratio 15.4 LAB CHEMISTRY METHOD 07/16/2025 4:42 PM [facility] Calcium 9.8 8.5 - 10.5 mg/dL LAB CHEMISTRY METHOD 07/16/2025 4:42 PM [facility] AST (SGOT) 12 10 - 42 unit/L LAB CHEMISTRY METHOD 07/16/2025 4:42 PM [facility] ALT (SGPT) 16 10 - 60 unit/L LAB CHEMISTRY METHOD 07/16/2025 4:42 PM [facility] Alkaline Phosphatase 48 42 - 121 unit/L LAB CHEMISTRY METHOD 07/16/2025 4:42 PM [facility] Total Protein 7.2 6.0 - 8.0 g/dL LAB CHEMISTRY METHOD 07/16/2025 4:42 PM [facility] Albumin 4.4 3.2 - 5.0 g/dL LAB CHEMISTRY METHOD 07/16/2025 4:42 PM [facility] Total Bilirubin 2.3(H) 0.0 - 1.4 mg/dL LAB CHEMISTRY METHOD 07/16/2025 4:42 PM [facility] Blood Venous blood specimen / Unknown Venipuncture / Unknown 07/16/2025 10:26 AM EDT 07/16/2025 10:26 AM EDT us Zev An MD LAB BLOOD ORDERABLES Final Resu lt [facility] [address] [place] [address], [place] [phone] * XR Cervical Spine 4-5 Views (07/16/2025 10:04 AM EDT) Anatomical Region Laterality Modality Spine, C-spine Radiographic Oralia ging 07/16/2025 10:0 8 AM EDT Narrative 07/16/2025 10:08 AM EDT Cervical spine, 4 views. History arm paresthesia. There is straightening of the usual cervical lordosis probably due to muscle spasm. Vertebral bodies, disc spaces and bony neural foramina are maintained. There is no prevertebral soft tissue swelling. CONCLUSIONS: Suggestion of muscle spasm. Otherwise unremarkable examination. -------- FINAL REPORT -------- Dictated By: Monica Trejo Dictated Date: 07/16/2025 10:08 ET Assigned Physician: Monica Trejo Reviewed and Electronically Signed By: Monica Trejo Signed Date: 07/16/2025 10:08 ET Workstation ID: [id number] Transcribed By: Self Edit Transcribed Date: 07/16/2025 10:08 ET Procedure Note Monica Trejo MD - 07/16/2025 Cervical spine, 4 views. History arm paresthesia. There is straightening of the usual cervical lordosis probably due tomuscle spasm. Vertebral bodies, disc spaces and bony neural foramina aremaintained. There is no prevertebral soft tissue swelling. CONCLUSIONS: Suggestion of muscle spasm. Otherwise unremarkableexamination. -------- FINAL REPORT -------- Dictated By: Monica Trejo Dictated Date: 07/16/2025 10:08 ET Assigned Physician: Monica Trejo Reviewed and Electronically Signed By: Monica Trejo Signed Date: 07/16/2025 10:08 ET Workstation ID: [id number] Transcribed By: Self Edit Transcribed Date: 07/16/2025 10:08 ET us Zev An MD IMG XR PROCEDURES Final Result * HIV Screening (10/02/2021) HIV Screening abstracted Historical Provider HEALTH MAINTENANCE Final Result * Hepatitis C Screening (10/02/2021) Hepatitis C Screening abstracted Historical Provider HEALTH MAINTENANCE Final Result * Pap smear (10/02/2021) 10/02/2021 Narrative HISTORICAL TESTING LAB RESULTING AGENCY - 10/17/2021 8:05 AM EST [id number] THINPREP PAP, IMAGED: NEGATIVE FOR SQUAMOUS INTRAEPITHELIAL [...] PAP HX NEG, LMP 07/08/21 [Z12.4, Z34.80] Result [facility] Fiorella JASMINE LAB CYTOLOGY ORDERABLES Final R esult HISTORICAL TESTING LAB RESULTING AGENCY from Last 3 Months or Most Recently Relevant to Health Maintenance Insurance [facility] [employer] Care Teams Diesel Motor Mechanic Relationship Specialty Start Date End Date Zev An MD [address] [place] [phone] PCP - General Internal Medicine 12/12/21
[2025-10-07 21:11] LABS: Alanine Aminotransferase 17 U/L (0-31); Albumin Level 4.8 g/dL (3.5-5.0); Alkaline Phosphatase 45 U/L (39-117); Anion Gap 12 (12-20); Aspartate Amino Transferase 19 U/L (5-31); Blood Urea Nitrogen 20 mg/dL (9-16); Calcium 9.4 mg/dL (8.4-10.2); Carbon Dioxide 25 mmol/L (22-29); Chloride 106 mmol/L (96-108); Creatinine Clr Calc Pharmacy 71.3; Estimated Glomerular Filt Rate > 60; Potassium 3.7 mmol/L (3.3-5.1); Sodium 139 mmol/L (135-145); Total Protein 7.4 g/dL (6.5-8.0)
[2025-10-07 22:29] VITALS: BP 103/55; PULSE 80; RESP 14; TEMP 36.7; O2SAT 98
--- NOTE | 2025-10-07 23:12 | ED_ITS ---
HPI - General Adult General Chief complaint: General Medical Stated complaint: R Leg Pain Headaches Time Seen by Provider: 10/07/25 23:12 Source: patient Mode of arrival: ambulatory Limitations: no limitations History of Present Illness ED Provider: Dr. Katia Patino HPI narrative: 30-year-old female presents with five days of intermittent warmth and pain involving the plantar aspect of the right foot. Initially localized to the sole, the sensation now intermittently radiates to the right ankle and calf. Patient describes the pain as a ?shooting? discomfort and a warm feeling ?as if my foot is on something warm.? Denies antecedent trauma, increased activity, or strenuous exercise; in fact, she has avoided usual running this week. No swelling noted by patient. No low-back pain or injury. Denies fever. Reports headaches for the past week and feeling generally ?under the weather.? Denies dysuria, hematuria, bowel changes, or systemic symptoms other than headaches. Last menstrual period was in August; cycles are slightly shorter (~3 days) but otherwise normal. No history of leg surgery. No daily medications and no known drug allergies. Related Data Allergies Allergy/AdvReac Type Severity Reaction Status Date / Time amoxicillin (AMOXICILLIN) Allergy Unknown RASH/HIVES Verified 10/07/25 20:44 Review of Systems 2 Review of Systems: as per HPI, full review of systems performed and negative but for the above mentioned pertinent positives and negatives. [facility] Social History Social History Alcohol intake: never Advance Directives: No Advance Directives Information Provided: No Do you have a plan to hurt others: No Plan Physical Exam ED Exam Exam: GENERAL: Well-Appearing, conversant, no acute distress. SKIN: Normal skin color for ethnicity, no rashes noted. HEENT: Normocephalic, atraumatic, no stridor, EOMI. CHEST: Heart regular rate and rhythm, no murmurs, symmetric chest rise and fall. PULMONARY: Clear to auscultation bilaterally, no labored breathing, no wheezes/rhales/rhonchi. ABDOMINAL: Soft, nondistended, nontender, positive bowel sounds in all quadrants. : Deferred. MUSCULOSKELETAL: Normal tone, full range of motion, no deformities, no peripheral edema, no TTP overlying the instep of the R foot, NV intact distally. NEURO: Alert and oriented x3, CN II through XII intact, equal strength and sensation bilateral upper and lower extremities, no focal neurologic deficits. PSYCHIATRIC: Normal affect, fluid speech, good eye contact and appropriate demeanor. Vital Signs: Vital Signs - 24 hr 10/07/25 20:37 10/07/25 22:29 Temperature 97.0 F 98.1 F Pulse Rate 84 80 Respiratory Rate 16 14 Blood Pressure 109/57 L 103/55 L Pulse Oximetry 97 98 Oxygen Delivery Method Room Air Room Air BMI result Body Mass Index 26.9 Medications Administered Discontinued Medications Generic Name Dose Route Start Last Admin Trade Name Santhoshq PRN Reason Stop Dose Admin Ibuprofen 600 mg 10/07/25 23:42 10/08/25 00:21 Ibuprofen 600 Mg Tablet PO 10/07/25 23:43 Not Given ONCE ONE Medical Decision Making Medical Decision Making [facility] Narrative: 30-year-old female with right plantar foot pain and warmth, exam and history consistent with plantar fasciitis; secondary calf discomfort likely due to altered gait (?splinting?). Recent labs reassuring. Low risk factors for DVT discussed. No indication for imaging. Blood work reassuring. Problem #1: Right plantar foot pain ? likely plantar fasciitis Assessment: Inflammatory irritation of plantar fascia causing warmth and pain; no signs of infection or vascular compromise. Plan: * Limit weight-bearing and rest the right foot as able. * NSAID therapy (e.g., ibuprofen) as needed for pain and inflammation. * Plantar fascia stretching: roll foot over a frozen tennis ball or similar object to provide cold therapy and fascial massage. * Consider gentle manual stretching/massage of plantar fascia and intrinsic foot muscles. * Return precautions reviewed: redness tracking up leg, posterior calf pain/tenderness, swelling, or fever?seek immediate care if these occur. Problem #2: Right calf discomfort secondary to altered gait Assessment: Likely muscle strain from compensatory walking pattern; no focal tenderness or swelling noted. Plan: * Expect improvement with resolution of plantar pain; continue above rest and NSAID regimen. * Monitor for development of focal calf pain, swelling, or systemic symptoms; instructed to return if these arise. Differential Diagnosis Differential Diagnoses: The differential diagnosis associated with the presentation includes (as above) Admission/Observation Consideration of admission/observation: Escalation of care including admission/observation considered Lab Data [facility] Lab Attestation statement: I reviewed the patient's lab results. 10/07/25 20:50 10/07/25 20:50 Labs: Lab Results 10/07/25 Range/Units 20:50 WBC 8.9 (4.8-10.8) X10*3/uL RBC 4.25 (4.20-5.50) X10*6/uL Hgb 13.2 (12.0-16.0) g/dl Hct 38.9 (37.0-47.0) % MCV 91.5 (80.0-98.0) fL MCH 31.1 (27.0-33.0) pg MCHC 33.9 (31.0-35.0) g/dl RDW 13.1 (11.0-16.0) % Plt Count 257 (160-400) X10*3/uL MPV 11.4 (9.4-12.3) fL Immature Gran % (Auto) 0.2 (0.0-0.4) % Neut % (Auto) 51.4 (45-73) % Lymph % (Auto) 35.8 (20-40) % Schleicher % (Auto) 8.4 (2-11) % Eos % (Auto) 3.7 (0-4) % Baso % (Auto) 0.5 (0-2) % Lymph # (Auto) 3.2 (1.2-4.9) X10*3/uL Schleicher # (Auto) 0.8 (0.1-1.2) X10*3/uL Eos # (Auto) 0.3 (0.0-0.4) X10*3/uL Baso # (Auto) 0.0 (0.0-0.2) X10*3/uL Abs Immat Gran (auto) 0.02 (0.00-0.03) X10*3/uL Absolute Neuts (auto) 4.6 (2.0-8.3) x10*3/uL Absolute Nucleated RBC 0.000 (0.0-0.012) X10*3/uL Nucleated RBC % (auto) 0.0 (0.0-0.2) /100WBC Sodium 139 (135-145) mmol/L Potassium 3.7 (3.3-5.1) mmol/L Chloride 106 (96-108) mmol/L Carbon Dioxide 25 (22-29) mmol/L Anion Gap 12 (12-20) BUN 20 H (9-16) mg/dL Creatinine 1.01 (0.5-1.4) mg/dL Estim Creat Clear Calc 71.3 Estimated GFR > 60 Random Glucose 101 (60-115) mg/dL Calcium 9.4 (8.4-10.2) mg/dL Total Bilirubin 1.6 H (0.0-1.0) mg/dL AST 19 (5-31) U/L ALT 17 (0-31) U/L Alkaline Phosphatase 45 (39-117) U/L Total Protein 7.4 (6.5-8.0) g/dL Albumin 4.8 (3.5-5.0) g/dL External Record Review External record reviewed: Inpatient record Prescription Management I considered prescription management with: Pain Medication Discharge Plan Discharge Clinical Impression: Plantar fasciitis of right foot Patient Disposition: Home, Self-Care Instructions: Plantar Fasciitis (ED), Plantar Fasciitis Exercises (ED) Additional Instructions: Return to the emergency room with any new or worsening symptoms including: Worsening pain in your leg despite ibuprofen, fevers greater than 100?, redness that tracks away from your foot and up your leg, any new symptom that concerns you. Call 911 with any medical emergency. Discharge Date/Time: 10/08/25 00:22 Print Language: Slovak
--- NOTE | 2025-10-08 00:21 | PC.NURSE ---
PT left before being medicated/discharged
== END 2025-10-08 00:22 | disposition home or self-care (01) ==
PROVIDERS: Emergency Provider Emergency Medicine; PCP Internal Medicine
DX: M72.2 Plantar fascial fibromatosis (principal); R26.9 Unspecified abnormalities of gait and mobility
CPT/HCPCS: 36415; 80053; 85025; 99283